=== PATIENT | female | born 1935 ===

== ENCOUNTER 2020-02-20 19:11 | Inpatient (IN) | payer OTHER ==
[~2020-02-20] VITALS: Ht 160 cm; Wt 63.5 kg
[2020-02-20] MEDS ORDERED: METFORMIN HCL500 M3 (19:22)
[2020-02-20] MEDS ORDERED: SYNTHROID50 MCG (19:22)
[2020-02-20] MEDS ORDERED: LOSARTAN-HCTZ1 EACH (19:23)
[2020-02-20] MEDS ORDERED: OMEPRAZOLE MAGN20 MG (19:23)
[2020-02-20] MEDS ORDERED: CLONAZEPAM0.5 MG (19:24)
[2020-03-04] MEDS ORDERED: ULTRACET PO (09:42)
[2020-03-04] MEDS ORDERED: PRILOSEC OTC20 MG PO (09:42)
== END 2020-03-04 14:36 | DRG 330 ==
LOC: ER 19:11 → SURG 02-21 07:57
PROVIDERS: Obstetrics & Gynecology Gynecologic Oncology; ADMIT Surgery
PROC: B24BZZZ Ultrasonography of Heart with Aorta (ICD-10-PCS; 2020-02-22)
PROC: 02HV33Z Insertion of Infusion Device into Superior Vena Cava, Percutaneous Approach (ICD-10-PCS; 2020-02-22)
PROC: 0DTQ4ZZ Resection of Anus, Percutaneous Endoscopic Approach (ICD-10-PCS; 2020-02-26)
PROC: 0D1N4Z4 Bypass Sigmoid Colon to Cutaneous, Percutaneous Endoscopic Approach (ICD-10-PCS; 2020-02-26)
PROC: 07BC4ZX Excision of Pelvis Lymphatic, Percutaneous Endoscopic Approach, Diagnostic (ICD-10-PCS; 2020-02-26)
PROC: 0UTG7ZZ Resection of Vagina, Via Natural or Artificial Opening (ICD-10-PCS; 2020-02-26)
PROC: 0DTN4ZZ Resection of Sigmoid Colon, Percutaneous Endoscopic Approach (ICD-10-PCS; principal; 2020-02-26 07:00)
PROC: 0DTP4ZZ Resection of Rectum, Percutaneous Endoscopic Approach (ICD-10-PCS; 2020-02-26 07:00)
DX: C19 Malignant neoplasm of rectosigmoid junction (principal); K62.5 Hemorrhage of anus and rectum; I10 Essential (primary) hypertension; E03.9 Hypothyroidism, unspecified